=== PATIENT | female | born 1980 | race Caucasian/White ===

== ENCOUNTER 2019-06-10 12:03 | Outpatient (CLI) | payer OTHER ==
[~2019-06-10 12:03] MED LIST: DEXL60CA2 PO; LANS15CA PO; MAG355OR14 PO
== END 2019-06-10 23:59 | disposition home or self-care (01) ==
LOC: LAB 12:03
PROVIDERS: ATTEND Obstetrics & Gynecology
DX: E55.9 Vitamin D deficiency, unspecified (principal)
CPT/HCPCS: 36415; 82306

== ENCOUNTER 2019-06-20 15:38 | Emergency (ER) | payer OTHER ==
[~2019-06-20] VITALS: Ht 154.9 cm; Wt 79.5 kg
[2019-06-20 19:36] VITALS: BP 124/64
== END 2019-06-20 19:39 | disposition home or self-care (01) ==
LOC: ED 17:22
DX: N13.2 Hydronephrosis with renal and ureteral calculous obstruction (principal); R31.9 Hematuria, unspecified; Z90.49 Acquired absence of other specified parts of digestive tract
CPT/HCPCS: 36415; 74176; 80048; 81001; 82040; 84703; 85025; 87086; 96374; 96375; 96376; 99284; J1170; J1885; J2270; J2405